=== PATIENT | female | born 1995 | race Two or more races ===

== ENCOUNTER 2022-09-29 06:36 | Emergency (ER) | payer MEDICAID ==
[~2022-09-29] VITALS: Ht 188 cm; Wt 140.0 kg
[2022-09-29] MEDS ORDERED: AMOX-277 PO (08:00)
[2022-09-29] MEDS ORDERED: PRED20TA2 PO (08:00)
[2022-09-29] MEDS ORDERED: PROM1SOL4 PO (08:00)
[2022-09-29 08:14] VITALS: BP 142/86
== END 2022-09-29 08:12 | disposition home or self-care (01) ==
LOC: ER 06:36 → EEVIPCON 06:36 → ER 08:12
DX: J20.9 Acute bronchitis, unspecified (principal)
CPT/HCPCS: 71046

== ENCOUNTER 2024-08-31 12:10 | Emergency (ER) | payer BC, MEDICAID ==
[~2024-08-31] VITALS: Ht 188 cm; Wt 143.0 kg
[~2024-08-31 12:10] MED LIST: AMOX875T4 PO; ONDA-144 PO; PRED20TA2 PO; PROM1SOL4 PO; ZOFR4T PO
[2024-08-31 12:38] VITALS: BP 175/93; PULSE 73; RESP 19; O2SAT 95
--- NOTE | 2024-08-31 12:51 | ED.PDOC ---
History of Present Illness HPI Comments 28F reports to the ER w/ no prior Hx associated to the c/c of a popped vein. Pt reports that she was doing laundry when she hit the lateral side of her right ankle on a sharp object. Pt did pop her varicose vein on the right ankle, lateral side. Denies chills, fever, N/V/D, SOB, CP or other associated symptoms, modifiers, or recent injuries at this time. Chief Complaint: Laceration Time Seen by MD: 12:30 Primary Care Provider: none Reviewed Notes: Nurses Notes, Medications, Allergies Allergies: Coded Allergies: Ibuprofen (Verified Allergy, Unknown, 08/31/24) Shellfish Allergy (Verified Allergy, Unknown, 08/31/24) Home Meds Active Scripts Ondansetron Odt 4MG Tab (ZOFRAN PO) 4 Mg Tb, 4 MG PO BID for 10 Days, #20 TAB 3 Refills ODT TAB-DISSOLVE IN MOUTH, THEN SWALLOW Prov:HORACE BRAVO MD 05/04/23 Ondansetron (Zofran) 4 Mg Tab, 1 TAB PO BID, #20 TAB Prov:ETHAN HARRIS 11/09/22 Promethazine-Dm (Promethazine Dm 6.25-15 mg/5Ml) 1 Gilda Gilda, 5 ML PO TID, #180 ML Prov:ETHAN HARRIS 09/29/22 Prednisone (Prednisone) 20 Mg Tab, 60 MG PO DAILY, #15 MG Prov:ETHAN HARRIS 09/29/22 Amoxicillin & Pot Clavulanate (Amoxicillin/Potassium Cla) 875 Mg Tab, 1 TAB PO BID, #20 TAB Prov:ETHAN HARRIS 09/29/22 Information Source: Patient Mode of Arrival: Ambulatory Severity: Moderate Timing: Minutes Duration: Since onset, Minutes Prehospital treatment: None Past Medical History PAST MEDICAL HISTORY: Denies Surgical History: Denies all surgeries 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 Family History Family History: Reviewed,noncontributory to illness, Unknown Social History Smoker: Non-Smoker Alcohol: Denies ETOH Use Drugs: Denies Drug Use Lives In: Home Constitutional: denies: chills, diaphoresis, fatigue, fever, malaise, sweats, weakness, others EENTM: denies: blurred vision, double vision, ear bleeding, ear discharge, ear drainage, ear pain, ear ringing, eye pain, eye redness, hearing loss, mouth pain, mouth swelling, nasal discharge, nose bleeding, nose congestion, nose pain, photophobia, tearing, throat pain, throat swelling, voice changes, others Respiratory: denies: cough, hemoptysis, orthopnea, SOB at rest, shortness of breath, SOB with excertion, stridor, wheezing, others Cardiovascular: denies: chest pain, dizzy spells, diaphoresis, Dyspnea on exertion, edema, irregular heart beat, left arm pain, lightheadedness, palpitations, PND, syncope, others Gastrointestinal: denies: abdomen distended, abdominal pain, blood streaked bowels, constipated, diarrhea, dysphagia, difficulty swallowing, hematemesis, melena, nausea, poor appetite, poor fluid intake, rectal bleeding, rectal pain, vomiting, others Genitourinary: denies: abnormal vagina bleeding, burning, dyspareunia, dysuria, flank pain, frequency, hematuria, incontinence, pain, , vagina discharge, urgency, others Neurological: denies: dizziness, fainting, headache, left sided numbness, left sided weakness, numbness, paresthesia, pre-existing deficit, right sided numbness, right sided weakness, seizure, speech problems, tingling, tremors, weakness, others Musculoskeletal: denies: back pain, gout, joint pain, joint swelling, muscle pain, muscle stiffness, neck pain, others Integumetry: denies: bruises, change in color, change in hair/nails, dryness, laceration, lesions, lumps, rash, wounds, others Allergic/Immunocompromised: denies: Difficulty Healing, Frequent Infections, Hives, Itching, others Hematologic/Lymphatic: denies: anemia, blood clots, easy bleeding, easy bruising, swollen glands, others Endocrine: denies: excessive hunger, excessive sweating, excessive thirst, excessive urination, flushing, intolerance to cold, intolerance to heat, unexplained weight gain, unexplained weight loss, others Psychiatric: denies: anxiety, bipolar disorder, depression, hopeless, panic disorder, schizophrenia, sleepless, suicidal, others All Other Systems: Reviewed and Negative Physical Exam General Appearance: Moderate Distress, Normal HEENT: Normal ENT Inspection, Pharynx Normal, TMs Normal Neck: Full Range of Motion, Non-Tender, Normal, Normal Inspection Respiratory: Chest Non-Tender, Lungs Clear, No Accessory Muscle Use, No Respiratory Distress, Normal Breath Sounds Cardiovascular: No Edema, No JVD, No Murmur, No Gallop, Normal Peripheral Pulses, Regular Rate/Rhythm Breast Exam: Deferred Gastrointestinal: No Organomegaly, Non Tender, No Pulsatile Mass, Normal Bowel Sounds, Soft Genitalia: Deferred Pelvic: Deferred Rectal: Deferred Extremities: No calf tenderness, Normal capillary refill, Normal inspection, Normal range of motion, Non-tender, No pedal edema Musculoskeletal : Apperance: Normal Neurologic: Alert, mental health program manager II-XII nml as Tested, No Motor Deficits, Normal Affect, Normal Mood, No Sensory Deficits Cerebellar Function: NOT DONE Reflexes: NOT DONE Skin: Dry, Normal Color, Warm, Wounds (Right ankle varicose vein) Peripheral Pulses: 3+ Radial (R), 3+ Radial (L) Lymphatic: No Adenopathy Was a procedure done? Was a procedure done?: No Differential Dx Considerations may include: Varicose vein X-Ray, Labs, Meds, VS Vital Signs Date Time Temp Pulse Resp B/P (MAP) Pulse Ox O2 Delivery O2 Flow Rate FiO2 08/31/24 12:38 73 95 Room Air* 0 21 08/31/24 12:38 73 19 175/93 (120) 95 08/31/24 12:23 98.0 73 19 175/93 (120) 95 Patient alert. Blood pressure slightly elevated. Could be from her anxiety. Vitals stable. She does not take any medication. Heart rate within normal limits. Explained to the patient that she will need to start taking blood pressure medication if continues to be high. Did not treat her blood pressure in the ER. Varicose vein on pressure stopped bleeding. No bleeding upon discharge. No calf tenderness. No leg swelling. No chest pain. Saturation pristine on room air. Heart rate within normal limits. Was told to follow up with her primary care physician. Was told to come back if there is any problem. Time of 1ST Reevaluation: 13:00 Reevaluation 1ST: Improved Patient Education/Counseling: Diagnosis, Treatment, Prognosis Family Education/Counseling: No Family Present Departure 1 Departure Time of Disposition: 12:58 Impression: Primary Impression: Hypertension Qualified Codes: I10 - Essential (primary) hypertension Additional Impression: Varicose vein of leg Qualified Codes: I83.91 - Asymptomatic varicose veins of right lower extremity Disposition: HOME / SELF CARE / HOMELESS Condition: Good Discharged With: Self Critical Care Note Critical Care Time?: No Stability Stability form required: No Heart Score Heart Score: Heart Score Response (Comments) Value History N/A 0 EKG N/A 0 Age N/A 0 Risk Factors N/A 0 Troponin N/A 0 Total 0 I personally scribed for JOSELYN JAMES MD ([email or web address]) on 08/31/24 at 12:51. Electronically submitted by Franky Joseph ([email or web address]). JOSELYN JAMES MD Aug 31, 2024 12:51
== END 2024-08-31 13:05 | disposition home or self-care (01) ==
LOC: ER 12:10
DX: I83.91 Asymptomatic varicose veins of right lower extremity (principal); I10 Essential (primary) hypertension; Z88.6 Allergy status to analgesic agent; Z79.899 Other long term (current) drug therapy; Z98.890 Other specified postprocedural states